=== PATIENT | female | born 1925 | race Caucasian/White ===

== ENCOUNTER → 2016-12-14 | Outpatient (CLI) | payer MEDICARE, OTHER ==
[~2016-12-14] MED LIST: ACET325T14 PO; AMLO2.5T PO; CHOL20003 PO; CRAN500T2 PO; FERR324T18 PO; FLUD0.1T PO; FLUO20CA8 PO; LEVO50TA5 PO; MAGN100T6 PO; MELA5CAP PO; MESA800T2 PO; METH10003 PO; OMEP-110 PO; TROS60CA3 PO; UBID30CA9 PO; VITA80004 PO; [UNRECOGNIZED DRUG - OTHER] PO; [UNRECOGNIZED DRUG - OTHER] PO; [UNRECOGNIZED DRUG - OTHER] PO; allertec PO; calcium PO; fish oil PO; strontium PO
== END | disposition home or self-care (01) ==
LOC: CFH 13:45
PROVIDERS: ATTEND Internal Medicine Cardiovascular Disease
DX: R06.02 Shortness of breath (principal)
CPT/HCPCS: 93306

== ENCOUNTER 2016-12-26 19:35 | Inpatient (IN) | payer MEDICARE, OTHER ==
[~2016-12-26] VITALS: Ht 160 cm; Wt 60.2 kg
[2016-12-26] MEDS ORDERED: MORPHINE SULFATE 4 MG/ML, 1ML ONE ×2 (20:24→22:18)
[2016-12-26] MEDS ORDERED: ONDANSETRON 2MG/ML, 2ML ONE (20:24)
[2016-12-26] MEDS ORDERED: SODIUM CHLORIDE FLUSH 10ML SYR IVF ONE (20:30)
[2016-12-26] MEDS ORDERED: ONDANSETRON 2MG/ML, 2ML IVPush ONE (20:30)
[2016-12-26] MEDS: MORPHINE SULFATE 4 MG/ML, 1ML IVPush PRN ×2 (20:43→21:21)
[2016-12-26 21:06] LABS: ASPARTATE AMINO TRANSFERASE 44 U/L (15-37); BLOOD UREA NITROGEN 30 mg/dL (7-18)
[2016-12-26 21:13] LABS: IS PT STATUS REG ER OR PRE ER? YES
[2016-12-26] MEDS ORDERED: SODIUM CHLORIDE 0.9% 1,000ML IVBOLUS ONE (21:30)
[2016-12-26] MEDS ORDERED: MORPHINE SULFATE 4 MG/ML, 1ML IVPush PRN (23:00)
[2016-12-26 23:43] VITALS: BP 162/93
[2016-12-27] MEDS: MORPHINE SULFATE 4 MG/ML, 1ML IV PRN ×3 (00:24→08:12)
[2016-12-27] MEDS ORDERED: MAGNESIUM HYDROXIDE 8%, 30ML UDC PO PRN (00:30)
[2016-12-27] MEDS ORDERED: NS + 20MEQ KCL 1,000 ML IV SCH (00:30)
[2016-12-27] MEDS ORDERED: ONDANSETRON 2MG/ML, 2ML IV PRN (00:30)
[2016-12-27] MEDS: CIPROFLOXACIN 250 MG TABLET PO SCH ×3 (01:04→22:00)
[2016-12-27] MEDS: ACETAMINOPHEN 500 MG TABLET PO SCH ×3 (01:04→22:00)
[2016-12-27] MEDS: MELATONIN 3 MG TABLET PO SCH ×2 (02:09→22:00)
[2016-12-27 02:26] VITALS: BP_SYST 163; BP_SYST 166; BP_DIAS 100; BP_DIAS 104
[2016-12-27 03:20] LABS: BLOOD UREA NITROGEN 25 mg/dL (7-18)
[2016-12-27 03:32] LABS: IS PT STATUS REG ER OR PRE ER? NO
[2016-12-27 03:49] LABS: TOTAL IRON BINDING CAPACITY 286 mcg/dL (250-450)
[2016-12-27] MEDS: LEVOTHYROXINE 50 MCG TABLET PO SCH (06:27)
[2016-12-27] MEDS: OXYcodone IR 5MG TABLET PO PRN ×2 (06:29→12:23)
[2016-12-27 07:42] VITALS: BP 179/102
[2016-12-27] MEDS: FLUOXETINE 20 MG CAPSULE PO SCH (08:12)
[2016-12-27] MEDS: TROSPIUM 60 MG HOMEMEDPO SCH (08:12)
[2016-12-27] MEDS ORDERED: ENTOCORT 3 MG HOMEMEDPO SCH (09:00)
[2016-12-27 09:04] LABS: IS PT STATUS REG ER OR PRE ER? NO
[2016-12-27 12:22] VITALS: BP 151/93
[2016-12-27] MEDS: NS + 20MEQ KCL 1,000 ML IV SCH (12:23)
[2016-12-27 12:36] VITALS: BP 134/85
[2016-12-27 14:52] LABS: IS PT STATUS REG ER OR PRE ER? NO
[2016-12-27 20:59] VITALS: BP 164/102
[2016-12-28] MEDS: NS + 20MEQ KCL 1,000 ML IV SCH (02:01)
[2016-12-28 02:55] VITALS: BP 161/94
[2016-12-28] MEDS: LEVOTHYROXINE 50 MCG TABLET PO SCH (06:31)
[2016-12-28 08:00] VITALS: BP 153/91
[2016-12-28] MEDS: TROSPIUM 60 MG HOMEMEDPO SCH (09:00)
[2016-12-28] MEDS: MORPHINE SULFATE 4 MG/ML, 1ML IV PRN (09:22)
[2016-12-28] MEDS: FLUOXETINE 20 MG CAPSULE PO SCH (11:03)
[2016-12-28] MEDS: CIPROFLOXACIN 250 MG TABLET PO SCH (11:03)
[2016-12-28] MEDS: ACETAMINOPHEN 500 MG TABLET PO SCH (11:04)
[2016-12-28] MEDS ORDERED: ENTOCORT 3 MG HOMEMEDPO SCH (12:00)
[2016-12-28 14:23] VITALS: BP 118/77
[2016-12-28] MEDS ORDERED: TRAM50TA2 PO (15:25)
[2016-12-28] MEDS ORDERED: CIPR250T27 PO (15:25)
[2016-12-28] MEDS ORDERED: HYDROcodone/APAP 5/325 TABLET PO PRN (15:30)
== END 2016-12-28 16:41 | disposition home health service (06) | DRG 393 ==
LOC: ED 21:41 → EDIP 21:42 → ED 22:16 → 5SO 22:55
PROVIDERS: ADMIT Internal Medicine; ATTEND Internal Medicine
PROC: 5A12012 Performance of Cardiac Output, Single, Manual (ICD-10-PCS; principal; 2016-12-26)
DX: T18.198A Other foreign object in esophagus causing other injury, initial encounter (principal); I46.9 Cardiac arrest, cause unspecified; N39.0 Urinary tract infection, site not specified; M48.54XA Collapsed vertebra, not elsewhere classified, thoracic region, initial encounter for fracture; S22.42XA Multiple fractures of ribs, left side, initial encounter for closed fracture; R55 Syncope and collapse; D53.9 Nutritional anemia, unspecified; E03.9 Hypothyroidism, unspecified; E86.0 Dehydration; E86.1 Hypovolemia; F32.9 Major depressive disorder, single episode, unspecified; F41.9 Anxiety disorder, unspecified; F51.04 Psychophysiologic insomnia; I07.1 Rheumatic tricuspid insufficiency; I10 Essential (primary) hypertension; I77.819 Aortic ectasia, unspecified site; M41.9 Scoliosis, unspecified; M81.0 Age-related osteoporosis without current pathological fracture; N32.81 Overactive bladder; Z96.1 Presence of intraocular lens; Z96.653 Presence of artificial knee joint, bilateral; Z66 Do not resuscitate; Z79.899 Other long term (current) drug therapy; Z80.0 Family history of malignant neoplasm of digestive organs; Z80.1 Family history of malignant neoplasm of trachea, bronchus and lung; Z90.710 Acquired absence of both cervix and uterus; Z98.41 Cataract extraction status, right eye; Z98.42 Cataract extraction status, left eye
CPT/HCPCS: 36415; 70450; 71111; 74230; 80048; 80053; 80061; 81001; 82306; 82607; 82728; 82746; 83540; 83550; 84439; 84443; 84481; 84484; 85025; 87086; 93005; 93880; 96361; 96374; 96375; 96376; J2405; J3480; J7030